=== PATIENT | male | born 1970 | race Asian ===

== ENCOUNTER 2019-02-25 01:34 | Emergency (ER) | payer SELFPAY ==
[~2019-02-25] VITALS: Ht 170.2 cm; Wt 79.5 kg
[2019-02-25] MEDS ORDERED: METF-960 PO (01:53)
[2019-02-25] MEDS ORDERED: PERTUSS(ACELL),DIPH,TET VAC/PF 0.5 ML VIAL IM ONE (02:00)
[2019-02-25 02:56] VITALS: BP 136/88
[2019-02-25 04:25] LABS: GLUCOSE,POINT OF CARE 388 MG/DL (70-110)
== END 2019-02-25 02:58 | disposition home or self-care (01) ==
LOC: EMS 01:40
DX: S01.01XA Laceration without foreign body of scalp, initial encounter (principal); E11.9 Type 2 diabetes mellitus without complications; F17.210 Nicotine dependence, cigarettes, uncomplicated; W01.0XXA Fall on same level from slipping, tripping and stumbling without subsequent striking against object, initial encounter; Y93.89 Activity, other specified; Y92.89 Other specified places as the place of occurrence of the external cause; Y99.8 Other external cause status
CPT/HCPCS: 12002; 70450; 90471; 90715